=== PATIENT | male | born 1945 | race Caucasian/White ===

== ENCOUNTER → 2019-09-20 12:53 | Outpatient (CLI) | payer MEDICARE, SELFPAY ==
--- NOTE | ~2019-09-20 | XR_ITS ---
XR chest 2V DATE: 09/20/2019 13:05 INDICATION: Cough, chest congestion TECHNIQUE: PA and lateral views COMPARISON: 11/05/2018 2 view chest FINDINGS: Heart size is within normal limits. There is mild aortic calcification and unfolding. No hi lar or mediastinal enlargement. No pulmonary infiltrate or consolidation, pleural effusion or pulmonary vascular congestion or pneumo thorax. IMPRESSION: No active cardiopulmonary disease Reviewed, dictated and finalized at location A.
== END ==
PROVIDERS: PCP Family Medicine; Visit Provider Family Medicine
DX: J01.91 Acute recurrent sinusitis, unspecified (principal); R05 Cough; R09.89 Other specified symptoms and signs involving the circulatory and respiratory systems
CPT/HCPCS: 71046

== ENCOUNTER 2022-05-16 10:04 | Emergency (ER) | payer MEDICARE, SELFPAY ==
--- NOTE | 2022-05-16 10:09 | ED.URI ---
HPI - URI/Sore Throat General Chief Complaint: Upper Respiratory Infection Stated Complaint: cold symptoms Time Seen by Provider: 05/16/22 10:09 Source: patient Mode of arrival: ambulatory Limitations: no limitations History of Present Illness HPI Narrative: Mr. Soto is a 76-year-old male patient presenting to clinic today with complaints of cold symptoms x5 days. He reports he has had fever, chills, body aches, sore throat, cough and nasal drainage. He reports he has been taking care of his at home who has terminal brain cancer. States that she just finished her last radiation treatment and hospice is the next step. States he feels as though he is very run down. He denies any shortness of breath or chest pain. He denies any nausea vomiting or diarrhea. MD elicited complaint: cough, rhinorrhea and nasal congestion Related Data Home Medications Medication Instructions Recorded Confirmed amlodipine 5 mg tablet 5 mg DAILY 05/16/22 05/16/22 apixaban 5 mg tablet (Eliquis) 5 mg BID 05/16/22 05/16/22 atorvastatin 80 mg tablet 80 mg DAILY 05/16/22 05/16/22 fluticasone propionate 50 2 spray intranasal DAILY 05/16/22 05/16/22 mcg/actuation nasal spray,suspension glimepiride 2 mg tablet 2 mg BID 05/16/22 05/16/22 insulin glargine 100 unit/mL (3 60 unit subcut DAILY 05/16/22 05/16/22 mL) subcutaneous pen (Lantus Solostar U-100 Insulin) metformin 1,000 mg tablet 1,000 mg DAILY 05/16/22 05/16/22 metoprolol tartrate 25 mg tablet 25 mg BID 05/16/22 05/16/22 montelukast 10 mg tablet 10 mg DAILY 05/16/22 05/16/22 etrndywr-mow-lynsu acid 0.4 1 tablet PO DAILY 05/16/22 05/16/22 mg-lycopene 300 mcg-lutein 250 mcg tablet (Centrum Silver) pantoprazole 40 mg tablet,delayed 40 mg PO BID 05/16/22 05/16/22 release pregabalin 50 mg capsule 50 mg BID 05/16/22 05/16/22 tamsulosin 0.4 mg capsule 0.4 mg PO DAILY 05/16/22 05/16/22 Allergies Allergy/AdvReac Type Severity Reaction Status Date / Time No Known Allergies Allergy Verified 05/16/22 10:28 Review of Systems Review of Systems: Pertinent positives per HPI. Patient denies any rash, headache, visual changes, dizziness, shortness of breath, chest pain, palpitations, nausea, vomiting, diarrhea, constipation, abdominal pain, or any urinary issues. PMFSH Comments At the time of my signature, I reviewed and agree with the nursing past medical, surgical, social, and family history. There is no relevant family history pertinent to the patient complaint. Exam Narrative: General: Well-developed, well nourished, in no apparent distress Head: Normocephalic, atraumatic Eyes: Pupils equally round and reactive to light bilaterally, EOM intact, sclera and conjunctive clear, no discharge, lids normal Ears: TMs intact and clear, ear canals clear, no drainage, grossly hearing normal. Nose: Nares patent, clear nasal discharge, mild inflammation, no sinus tenderness. Mouth: Oral pharynx without lesions or masses, good dentition, MMM. Oropharynx red with swelling Neck: Supple, trachea midline, no enlargement of anterior or posterior cervical nodes, no thyroid masses or goiter palpable. Cardio: Regular rate and rhythm, s1 and s2 normal, no murmur appreciated. Resp: Clear to auscultation bilaterally, no rhonchi, rales, wheezing or rubs Course Course Emergency Course: Portions of this record may have been created with voice recognition software. Level of Care: Express Care Visit Vital Signs Vital signs: Vital Signs Temperature 36.6 C 05/16/22 10:19 Pulse Rate 66 05/16/22 10:19 Respiratory Rate 18 05/16/22 10:19 Blood Pressure 111/59 L 05/16/22 10:19 Pulse Oximetry 100 05/16/22 10:19 Oxygen Delivery Room Air 05/16/22 10:19 Temperature 36.6 C 05/16/22 10:19 Pulse Rate 66 05/16/22 10:19 Respiratory Rate 18 05/16/22 10:19 Blood Pressure 111/59 L 05/16/22 10:19 Pulse Oximetry 100 05/16/22 10:19 Oxygen Delivery Room Air 05/16/22 10:
[2022-05-16 10:19] VITALS: BP 111/59; PULSE 66; RESP 18; TEMP 36.6; O2SAT 100
== END 2022-05-16 11:11 | disposition home or self-care (01) ==
LOC: EXPTROY 10:11
PROVIDERS: Emergency Provider Nurse Practitioner Family; PCP Family Medicine
DX: B34.9 Viral infection, unspecified (principal); J06.9 Acute upper respiratory infection, unspecified; J02.9 Acute pharyngitis, unspecified; Z20.822 Contact with and (suspected) exposure to COVID-19; E78.00 Pure hypercholesterolemia, unspecified; E11.9 Type 2 diabetes mellitus without complications
CPT/HCPCS: 87081; 87426; 87804; 87880; 99213; C9803; G0463

== ENCOUNTER 2022-05-31 19:20 | Emergency (ER) | payer MEDICARE, SELFPAY ==
--- NOTE | ~2022-05-31 | XR_ITS ---
EXAMINATION: XR chest 2V Exam Date/Time: 05/31/2022 19:44 [employer] HISTORY: cough for 3 weeks Comparison: 09/20/2019 and 11/05/2018, CT 05/30/2012. RESULT: Lines, tubes, and devices: None. Lungs and pleura: 2.9 cm lobulated left lower lung opacity, probably located posteriorly in the ling azul along the major fissure. Lungs otherwise clear, save for the presence of senescent changes. Cardiomediastinal silhouette: Stable. Other: No acute osseous or upper abdominal finding. IMPRESSION: No acute cardiopulmonary process. 2.9 cm left lower lung nodule, recommend referral for nonemergent, outpatient low-dose CT of the chest for further evaluation Reviewed, dictated and finalized at location K. S REPRESENT[employer]IVE [employer] IMPRESSION: No acute cardiopulmonary process. 2.9 cm left lower lung nodule, recommend refe rral for nonemergent, outpatient low-dose CT of the chest for further evaluatio n
[2022-05-31 19:34] VITALS: BP 104/59; PULSE 64; RESP 18; TEMP 35.9; O2SAT 99
--- NOTE | 2022-05-31 19:35 | ED.URI ---
HPI - URI/Sore Throat General Chief Complaint: Upper Respiratory Infection Stated Complaint: congestion Time Seen by Provider: 05/31/22 19:35 Source: patient Mode of arrival: ambulatory Limitations: no limitations History of Present Illness HPI Narrative: 76-year-old male presents with niece with complaint of sinus congestion, cough for the past several weeks. Was seen for the same complaint here approximately 3 weeks ago and told sinusitis, viral not given any antibiotic. Patient reports that symptoms are worse, coughing at night. Having some mild shortness of breath on exertion. Reports history of PE 2 years ago. States that symptoms are not the same, when he had a PE he could barely walk across the room without needing to sit down. Does not feel the same today. Patient is talkative and alert. patient reports that he is Exhausted. Is taking care of his that has cancer. she is very ill and he is having to lift her until a home health nurse starts in June. All systems reviewed and negative except as noted above. Related Data Home Medications Medication Instructions Recorded Confirmed amlodipine 5 mg tablet 5 mg DAILY 05/16/22 05/31/22 apixaban 5 mg tablet (Eliquis) 5 mg BID 05/16/22 05/31/22 atorvastatin 80 mg tablet 80 mg DAILY 05/16/22 05/31/22 fluticasone propionate 50 2 spray intranasal DAILY 05/16/22 05/31/22 mcg/actuation nasal spray,suspension glimepiride 2 mg tablet 2 mg BID 05/16/22 05/31/22 insulin glargine 100 unit/mL (3 60 unit subcut DAILY 05/16/22 05/31/22 mL) subcutaneous pen (Lantus Solostar U-100 Insulin) metformin 1,000 mg tablet 1,000 mg DAILY 05/16/22 05/31/22 metoprolol tartrate 25 mg tablet 25 mg BID 05/16/22 05/31/22 montelukast 10 mg tablet 10 mg DAILY 05/16/22 05/31/22 njpetacj-rta-swwhb acid 0.4 1 tablet PO DAILY 05/16/22 05/31/22 mg-lycopene 300 mcg-lutein 250 mcg tablet (Centrum Silver) pantoprazole 40 mg tablet,delayed 40 mg PO BID 05/16/22 05/31/22 release pregabalin 50 mg capsule 50 mg BID 05/16/22 05/31/22 tamsulosin 0.4 mg capsule 0.4 mg PO DAILY 05/16/22 05/31/22 famotidine 20 mg tablet 20 mg PO DAILY 05/31/22 05/31/22 pregabalin 50 mg capsule 50 mg PO DAILY 05/31/22 05/31/22 sertraline 25 mg tablet 25 mg PO DAILY 05/31/22 05/31/22 Allergies Allergy/AdvReac Type Severity Reaction Status Date / Time No Known Allergies Allergy Verified 05/31/22 19:55 Review of Systems Review of Systems: CONSTITUTIONAL: Denies fever, chills, or sweats. EYES: Denies visual changes, redness, or discharge. ENT: Reports rhinorrhea, congestion, sore throat, or otalgia. CARDIOVASCULAR: Denies chest pain, palpitations, or edema. RESPIRATORY: report cough and dyspnea on exertion. GASTROINTESTINAL: Denies abdominal pain, nausea, vomiting, or diarrhea. GENITOURINARY: Denies dysuria or hematuria. SKIN: Denies rash or itching. MUSCULOSKELETAL: Denies back pain, joint pain, or myalgia. NEUROLOGIC: Denies headache, numbness, or weakness. PSYCHIATRIC: Denies anxiety or depression. All other systems reviewed are negative, except as documented in HPI. [facility] Past Medical History Medical History (Updated 06/01/22 @ 14:15 by Rocio Dietz PA-C) History of diabetes mellitus History of gastroesophageal reflux (GERD) History of hyperlipidemia History of hypertension Social History Social History (Updated 06/01/22 @ 10:56 by Rocio Dietz PA-C) Smoking status: Never smoker Comments At time of signature, agree with nursing past medical, surgical, social and family history. There is no relevant family history pertinent to the presenting complaint. Exam Narrative: GENERAL: This is a well-nourished, well-developed patient Patient appears fatigued but in no distress. HEAD: normocephalic, atraumatic. EYES: PERRL. Sclera clear/white. Vision is grossly intact. EARS: External ears normal, auditory canals clear and without drainage, Fluid bilateral TMs with erythema. N
--- NOTE | 2022-05-31 20:23 | PC.NURSE ---
Patient presents to express care in [place] with concern of PE. This nurse and ROLL [employer]PER explained to patient and niece that the x-ray will not show a PE, but we can check for pneumonia or bronchitis. x-ray performed and results given to patient. No acute findings per the report. Patient and niece educated and explained to them that they really need to go to the ER if symptoms worsen even in the slightest and if they are still concerned about PE to please proceed to the ED.
== END 2022-05-31 20:20 | disposition home or self-care (01) ==
PROVIDERS: Emergency Provider Nurse Practitioner Family; PCP Family Medicine
DX: J01.90 Acute sinusitis, unspecified (principal); E11.9 Type 2 diabetes mellitus without complications; Z79.84 Long term (current) use of oral hypoglycemic drugs; Z79.4 Long term (current) use of insulin; K21.9 Gastro-esophageal reflux disease without esophagitis; E78.5 Hyperlipidemia, unspecified; I10 Essential (primary) hypertension
CPT/HCPCS: 71046; 99213; G0463

== ENCOUNTER 2022-06-01 10:17 | Emergency (ER) | payer MEDICARE, SELFPAY ==
[2022-06-01] VITALS (24 sets, daily range): BP systolic 114–132; BP diastolic 65–78; PULSE 56–69; RESP 12–20; TEMP 36.5; O2SAT 94–100
--- NOTE | ~2022-06-01 | CT_ITS ---
EXAMINATION: CTA chest PE protocol DATE: 06/01/2022 12:13 CHIEF TECHNICIAN INDICATION: Shortness of breath. History of blood clots. Lung nodule. TECHNIQUE: Computed tomographic angiography (CTA) of the chest was performed with 100 mL Omnipaque-35 0 intravenous contrast. The dose-length product was 511.27 mGy-cm. Maximum intensity projection 3D-re constructions of the aorta and other arteries were constructed by the technologist on a separate work station. COMPARISON: CT dated 05/30/2012 and chest x-ray dated 05/31/2022. FINDINGS: Study is technically adequate without evidence for pulmonary embolism. No significant pleur al or pericardial effusion. There is atherosclerosis of the aorta and coronary arteries. Small hiatal hernia. Cardiomegaly. No thoracic lymphadenopathy. There is a lingular mass measuring 2.9 x 2 x 2.2 cm, suspicious for bronchogenic carcinoma. No endobronchial lesions. No pneumothorax. No endobronchia l lesions. IMPRESSION: 1. No evidence for pulmonary embolism. 2: Lingular mass measuring 2.9 cm maximum dimension, suspicious for bronchogenic carcinoma. Reviewed, dictated and finalized at location B. F TECHNICIAN IMPRESSION: 1. No evidence for pulmonary embolism. 2: Lingular mass measuring 2.9 cm maximum dimension, suspicious for bronchogeni c carcinoma.
--- NOTE | 2022-06-01 10:29 | ED.SOB ---
HPI - SOB/Dyspnea General Chief Complaint: Shortness of Breath/Dyspnea Stated Complaint: SOB Time Seen by Provider: 06/01/22 10:27 Source: patient and family Mode of arrival: ambulatory Limitations: no limitations History of Present Illness HPI Narrative: This is a 76 year old male that presents to the ER for ongoing cold symptoms over the last couple of weeks. Reports cough, congestion and malaise. He was evaluated by his PCP and at urgent care. Was started on an antibiotic and steroid. Reports he has had shortness of breath worse with exertion. Denies fever or chest pain. Related Data Home Medications Medication Instructions Recorded Confirmed amlodipine 5 mg tablet 5 mg DAILY 05/16/22 05/31/22 apixaban 5 mg tablet (Eliquis) 5 mg BID 05/16/22 05/31/22 atorvastatin 80 mg tablet 80 mg DAILY 05/16/22 05/31/22 fluticasone propionate 50 2 spray intranasal DAILY 05/16/22 05/31/22 mcg/actuation nasal spray,suspension glimepiride 2 mg tablet 2 mg BID 05/16/22 05/31/22 insulin glargine 100 unit/mL (3 60 unit subcut DAILY 05/16/22 05/31/22 mL) subcutaneous pen (Lantus Solostar U-100 Insulin) metformin 1,000 mg tablet 1,000 mg DAILY 05/16/22 05/31/22 metoprolol tartrate 25 mg tablet 25 mg BID 05/16/22 05/31/22 montelukast 10 mg tablet 10 mg DAILY 05/16/22 05/31/22 sjelqwpt-mfk-krtmt acid 0.4 1 tablet PO DAILY 05/16/22 05/31/22 mg-lycopene 300 mcg-lutein 250 mcg tablet (Centrum Silver) pantoprazole 40 mg tablet,delayed 40 mg PO BID 05/16/22 05/31/22 release pregabalin 50 mg capsule 50 mg BID 05/16/22 05/31/22 tamsulosin 0.4 mg capsule 0.4 mg PO DAILY 05/16/22 05/31/22 famotidine 20 mg tablet 20 mg PO DAILY 05/31/22 05/31/22 pregabalin 50 mg capsule 50 mg PO DAILY 05/31/22 05/31/22 sertraline 25 mg tablet 25 mg PO DAILY 05/31/22 05/31/22 Allergies Allergy/AdvReac Type Severity Reaction Status Date / Time No Known Allergies Allergy Verified 05/31/22 19:55 Review of Systems Review of Systems: CONSTITUTIONAL: Denies fever ENT: Reports congestion CARDIOVASCULAR: Denies chest pain, or edema. RESPIRATORY: Reports cough and dyspnea. All systems reviewed & are unremarkable except as noted in HPI and below PMFSH Past Medical History Medical History (Updated 06/01/22 @ 14:15 by Rocio Dietz PA-C) History of diabetes mellitus History of gastroesophageal reflux (GERD) History of hyperlipidemia History of hypertension Social History Social History (Updated 06/01/22 @ 10:56 by Rocio Dietz PA-C) Smoking status: Never smoker Exam Narrative: GENERAL: Well-appearing, well-nourished, and in no acute distress. HEAD: Normocephalic, atraumatic. EYES: EOMI. ENT: Nares clear, no rhinorrhea or epistaxis. Mucous membranes moist. Oropharynx without tonsillar hypertrophy exudate or other lesions. Bilateral TMs pearly franks non-bulging NECK: Supple. No adenopathy or masses. CHEST: Clear to auscultation. No respiratory distress. No wheezes rales or rhonchi HEART: Regular rate and rhythm. No murmur heard. Normal peripheral pulses. EXTREMITIES: Normal range of motion. No edema. SKIN: Warm, dry, no rash. NEURO: No focal deficits. Alert and oriented x3. PSYCH: Normal mood and affect Course Consultations Consultation #1: Spoke with pulmonology, patient is appropriate to follow-up in clinic for further evaluation. Date: 06/01/22 Vital Signs Vital signs: Vital Signs Temperature 97.7 F 06/01/22 10:25 Pulse Rate 68 06/01/22 10:25 Respiratory Rate 17 06/01/22 10:25 Blood Pressure 128/74 06/01/22 10:25 Pulse Oximetry 97 06/01/22 10:25 Oxygen Delivery Room Air 06/01/22 10:25 Temperature 97.7 F 06/01/22 10:25 Pulse Rate 60 06/01/22 13:30 Respiratory Rate 16 06/01/22 13:30 Blood Pressure 122/66 06/01/22 11:46 Pulse Oximetry 98 06/01/22 13:30 Oxygen Delivery Room Air 06/01/22 10:35 MDM - SOB/Dyspnea MDM Narrative Medical decision making narrative: Patient pr
--- NOTE | 2022-06-01 10:34 | ECG_ITS ---
Measurements Intervals [place] Rate: 68 P: 48 AR: 209 QRS: -20 QRSD: 104 T: 51 QT: 397 QTc: 422 Interpretive Statements SINUS RHYTHM DELAYED PRECORDIAL R/S TRANSITION INFERIOR INFARCT, AGE INDETERMINATE BORDERLINE ST-T WAVE ABNORMALITY- ANTERIOR LEADS BASELINE ARTIFACT- II, III, AVF ABNORMAL ECG NO PREVIOUS ECG AVAILABLE FOR COMPARISON Electronically Signed On 06-01-2022 11:58:48 [employer] by Hakeem Reyes D.O.
[2022-06-01 10:36] LABS: Glucose Point of Care 213 mg/dl (65-105)
[2022-06-01 10:50] LABS: Basophils Percent Auto 0.5 % (0.2-1.2); Eosinophils Percent Auto 0.2 % (0-4.4); Hematocrit 35.9 % (42.0-52.0); Hemoglobin 11.2 g/dL (14.0-18.0); Immature Granulocyte Absolute 0.02 K/mm3 (0.00-0.031); Immature Granulocyte Percent A 0.3 % (0-0.5); Lymphocytes Absolute Auto 0.93 K/mm3 (0.9-3.2); Lymphocytes Percent Auto 14.1 % (18.3-44.2); Mean Corpuscular HGB Conc 31.2 g/dl (32-36); Mean Corpuscular Hemoglobin 27.5 pg (26-34); Mean Corpuscular Volume 88.2 fl (80-100); Mean Platelet Volume 8.7 fl (7.4-10.4); Monocytes Absolute Auto 0.7 K/mm3 (0.1-0.6); Monocytes Percent Auto 10.2 % (2.6-8.5); Neutrophils Absolute Auto 4.9 K/mm3 (1.3-6.7); Neutrophils Percent Auto 74.7 % (45.5-73.1); Platelet Count Result 301 k/mm3 (150-375); Red Blood Count 4.07 M/mm3 (4.6-6.20); Red Cell Distribution Width 16.2 % (11.5-14.5); White Blood Count 6.6 K/mm3 (4.5-10.0)
[2022-06-01 10:59] LABS: INR 1.2; Prothrombin Time 14.6 Seconds (11.1-14.7)
[2022-06-01 11:00] LABS: Alanine Aminotransferase 28 U/L (6-50); Albumin Level 3.3 g/dL (3.5-5.1); Alkaline Phosphatase 83 U/L (38-126); Anion Gap 7 mmol/L (8-16); Aspartate Amino Transferase 27 U/L (17-59); Bilirubin,Total 0.4 mg/dL (0.2-1.3); Blood Urea Nitrogen 20 mg/dL (9-20); Calcium 7.9 mg/dL (8.4-10.2); Carbon Dioxide 25 mmol/L (22-30); Chloride 103 mmol/L (98-107); Estimated CRCL calculation 44 ml/min; Estimated Glomerular Filt Rate 54; Glucose 210 mg/dL (65-110); Partial Thromboplastin Time 34.2 SECONDS (22.3-36.8); Sodium 135 mmol/L (137-145)
[2022-06-01 11:12] LABS: NT Pro B Type Natriuretic Pept 469 pg/mL (5-100); Troponin I < 0.012 ng/mL (0.000-0.034)
[2022-06-01 11:22] LABS: D Dimer 0.48 ug/mL (<0.48)
[2022-06-01 11:26] LABS: Influenza A QL RT-PCR Positive (Negative); Influenza B QL RT-PCR Negative (Negative); RSV RNA, RT-PCR Negative (Negative); SARS-CoV-2 RNA PCR Negative
== END 2022-06-01 14:39 | disposition home or self-care (01) ==
PROVIDERS: Physician Assistant; Emergency Provider Emergency Medicine; PCP Family Medicine
DX: J10.1 Influenza due to other identified influenza virus with other respiratory manifestations (principal); R91.8 Other nonspecific abnormal finding of lung field; Z20.822 Contact with and (suspected) exposure to COVID-19; E11.9 Type 2 diabetes mellitus without complications; K21.9 Gastro-esophageal reflux disease without esophagitis; E78.5 Hyperlipidemia, unspecified; I10 Essential (primary) hypertension; Z79.4 Long term (current) use of insulin; Z79.01 Long term (current) use of anticoagulants; Z79.84 Long term (current) use of oral hypoglycemic drugs; R94.31 Abnormal electrocardiogram [ECG] [EKG]
CPT/HCPCS: 36415; 71275; 80053; 82948; 83880; 84484; 85025; 85380; 85610; 85730; 87637; 93005; 99284; Q9967

== ENCOUNTER 2023-10-30 07:57 | Outpatient (CLI) | payer MEDICARE, SELFPAY ==
--- NOTE | ~2023-10-30 | XR_ITS ---
EXAMINATION: XR chest 2V 10/30/2023 08:26 INDICATION: Allergic rhinitis PROCEDURE: 2 view chest COMPARISON: No prior studies for comparison. FINDINGS: The lungs are clear. The cardiomediastinal silhouette is within normal limits. There are no pleural effusions. There is no pneumothorax suspected. IMPRESSION: 1: NO ACUTE CARDIOPULMONARY DISEASE. Reviewed, dictated and finalized at location B.
== END 2023-10-30 07:58 ==
PROVIDERS: PCP Family Medicine; Visit Provider Family Medicine
DX: J30.2 Other seasonal allergic rhinitis (principal)
CPT/HCPCS: 71046

== ENCOUNTER 2023-11-04 14:46 | Emergency (ER) | payer MEDICARE, SELFPAY ==
--- NOTE | ~2023-11-04 | CT_ITS ---
EXAMINATION: CTA chest PE protocol DATE: 11/04/2023 16:54 INDICATION: Cough and prior history of PE TECHNIQUE: Computed tomography angiography (CTA) of the chest was performed with 100 mL Omnipaque-350 intravenous contrast timed to evaluate the pulmonary arteries. Coronal maximum intensity projection 3D-reconstructions were created by the technologist. The dose-length product (DLP) was 720.79 mGy-cm. Automated exposure control and iterative reconstruction technique were employed. COMPARISON: 06/01/2022; x-ray chest 10/30/2023. FINDINGS: Lung parenchyma and airways: Dependent atelectasis, otherwise clear. Patent airways. Near-complete in terval resolution of the previously described lingular mass. Pleura: Unremarkable. Thoracic inlet, axillae and chest wall: Unremarkable. Thoracic aorta: No significant dilation. No dissection. Mild arch calcification. Mediastinum: Normal. Heart and pericardium: Normal. Coronary artery calcifications: Mild. Upper abdomen: No significant finding. Bones: No acute osseous finding. Pulmonary arteries: Study quality: Adequate. No pulmonary emboli detected. IMPRESSION: No CT evidence of acute pulmonary embolus. No acute process detected in the chest. Reviewed, dictated and finalized at location K.
--- NOTE | ~2023-11-04 | CT_ITS ---
EXAMINATION: CT brain wo con DATE: 11/04/2023 16:47 INDICATION: head injury . TECHNIQUE: Computed tomography (CT) of the head was performed without intravenous contrast. The mA wa s adjusted according to patient size. Iterative reconstruction technique was employed. The dose-lengt h product was 605.33 mGy-cm. COMPARISON: 04/23/2008 MRI brain, images only. FINDINGS: No acute intracranial hemorrhage or extra-axial fluid collection. No hydrocephalus, mass, or herniation. No acute ischemic infarct. Unremarkable dural venous sinus attenuation. No acute osseous abnormality. The aerated spaces are clear. Mild atrophy and chronic white matter change. Atherosclerotic intracranial calcification. Bilateral l ens replacements. Mild bilateral basal ganglia calcification. Partially empty sella. IMPRESSION: No acute intracranial process. Reviewed, dictated and finalized at location K.
[2023-11-04 14:46] VITALS: BP 118/58; PULSE 54; RESP 13; TEMP 36.8; O2SAT 98
[2023-11-04 14:56] VITALS: O2SAT 100
--- NOTE | 2023-11-04 15:36 | ED.GENADULT ---
HPI - General Adult General Chief complaint: Fall Stated complaint: glf Time Seen by Provider: 11/04/23 14:58 History of Present Illness HPI narrative: 78-year-old male presenting to the emergency department for evaluation after having a ground level fall. Patient states that he has had a intermittent respiratory illness ongoing for multiple weeks. Patient states that he has had increased episodes of dizziness since having the upper respiratory infection. Patient states he stood up from the couch and walked a few feet had onset of dizziness and was unable to catch himself before he fell and struck his head on the wall. Patient denies any loss consciousness. 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 Related Data Home Medications Medication Instructions Recorded Confirmed amlodipine 5 mg tablet 5 mg DAILY 05/16/22 05/31/22 apixaban 5 mg tablet (Eliquis) 5 mg BID 05/16/22 05/31/22 atorvastatin 80 mg tablet 80 mg DAILY 05/16/22 05/31/22 fluticasone propionate 50 2 spray intranasal DAILY 05/16/22 05/31/22 mcg/actuation nasal spray,suspension glimepiride 2 mg tablet 2 mg BID 05/16/22 05/31/22 insulin glargine 100 unit/mL (3 60 unit subcut DAILY 05/16/22 05/31/22 mL) subcutaneous pen (Lantus Solostar U-100 Insulin) metformin 1,000 mg tablet 1,000 mg DAILY 05/16/22 05/31/22 metoprolol tartrate 25 mg tablet 25 mg BID 05/16/22 05/31/22 montelukast 10 mg tablet 10 mg DAILY 05/16/22 05/31/22 xbudgihu-dan-nlwuy acid 0.4 1 tablet PO DAILY 05/16/22 05/31/22 mg-lycopene 300 mcg-lutein 250 mcg tablet (Centrum Silver) pantoprazole 40 mg tablet,delayed 40 mg PO BID 05/16/22 05/31/22 release pregabalin 50 mg capsule 50 mg BID 05/16/22 05/31/22 tamsulosin 0.4 mg capsule 0.4 mg PO DAILY 05/16/22 05/31/22 famotidine 20 mg tablet 20 mg PO DAILY 05/31/22 05/31/22 pregabalin 50 mg capsule 50 mg PO DAILY 05/31/22 05/31/22 sertraline 25 mg tablet 25 mg PO DAILY 05/31/22 05/31/22 Allergies Allergy/AdvReac Type Severity Reaction Status Date / Time No Known Allergies Allergy Verified 11/04/23 14:54 Review of Systems Review of Systems: All systems reviewed & are unremarkable except as noted in HPI and below PMFSH Past Medical History Medical History (Updated 11/05/23 @ 00:00 by Randy Grove) History of diabetes mellitus History of gastroesophageal reflux (GERD) History of hyperlipidemia History of hypertension Social History Social History (Updated 06/01/22 @ 10:56 by Rocio Dietz PA-C) Smoking status: Never smoker Exam Narrative: APPEARANCE: Well appearing, no pain, no distress, well-nourished. HEAD: normocephalic, atraumatic. EYES: PERRLA/EOMI, conjunctivae clear. NOSE: Normal no drainage EARS:TMS clear with good light reflex. THROAT: Pharynx clear, no exudate. NECK: Supple. No adenopathy, no masses. RESPIRATORY: Airway patent, respirations nonlabored. Clear to auscultation bilaterally, no rales, rhonchi, wheezing. CARDIOVASCULAR: Regular rate and rhythm without murmurs rubs or gallops. ABDOMINAL: Soft, nontender, nondistended, normal bowel sounds MUSCULOSKELETAL: Moves all extremities. Strength/ROM intact, No edema, No calf tenderness. NEURO: Alert. Cranial nerves II through XII intact. Grossly intact SKIN: Warm, dry. Normal Color. Small abrasion to the left lateral eyebrow Course Vital Signs Vital signs: Vital Signs Temperature 98.3 F 11/04/23 14:46 Pulse Rate 54 L 11/04/23 14:46 Respiratory Rate 13 11/04/23 14:46 Blood Pressure 118/58 L 11/04/23 14:46 Pulse Oximetry 98 11/04/23 14:46 Oxygen Delivery Room Air 11/04/23 14:46 Temperature 98.7 F 11/04/23 18:13 Pulse Rate 59 L 11/04/23 18:13 Respiratory Rate 17 11/04/23 18:13 Blood Pressure 120/67 11/04/23 18:13 Pulse Oximetry 99
[2023-11-04 16:00] VITALS: BP 111/60; PULSE 53; RESP 14; O2SAT 97
[2023-11-04 16:06] LABS: Basophils Absolute Auto 0.1 K/mm3 (0.0-0.1); Basophils Percent Auto 0.6 % (0.2-1.2); Eosinophils Absolute Auto 0.1 K/mm3 (0-0.3); Eosinophils Percent Auto 1.1 % (0-4.4); Hematocrit 32.4 % (42.0-52.0); Hemoglobin 10.3 g/dL (14.0-18.0); Immature Granulocyte Absolute 0.01 K/mm3 (0.00-0.031); Immature Granulocyte Percent A 0.1 % (0-0.5); Lymphocytes Absolute Auto 1.31 K/mm3 (0.9-3.2); Lymphocytes Percent Auto 16.5 % (18.3-44.2); Mean Corpuscular HGB Conc 31.8 g/dl (32-36); Mean Corpuscular Hemoglobin 29.9 pg (26-34); Mean Corpuscular Volume 94.2 fl (80-100); Mean Platelet Volume 9.3 fl (7.4-10.4); Monocytes Absolute Auto 0.7 K/mm3 (0.1-0.6); Monocytes Percent Auto 8.2 % (2.6-8.5); Neutrophils Absolute Auto 5.8 K/mm3 (1.3-6.7); Neutrophils Percent Auto 73.5 % (45.5-73.1); Platelet Count Result 204 k/mm3 (150-375); Red Blood Count 3.44 M/mm3 (4.6-6.20); Red Cell Distribution Width 12.7 % (11.5-14.5); White Blood Count 7.9 K/mm3 (4.5-10.0)
[2023-11-04 16:19] LABS: INR 1.2; Prothrombin Time 15.8 Seconds (11.1-14.7)
[2023-11-04 16:20] LABS: Partial Thromboplastin Time 27.9 Seconds (22.3-36.8)
[2023-11-04 16:22] LABS: Alanine Aminotransferase 15 U/L (6-50); Albumin Level 3.4 g/dL (3.5-5.1); Alkaline Phosphatase 61 U/L (38-126); Anion Gap 5 mmol/L (4-12); Aspartate Amino Transferase 16 U/L (17-59); Bilirubin,Total 0.5 mg/dL (0.2-1.3); Blood Urea Nitrogen 26 mg/dL (9-20); Calcium 9.2 mg/dL (8.4-10.2); Carbon Dioxide 24 mmol/L (22-30); Chloride 109 mmol/L (98-107); Estimated CRCL calculation 45 ml/min; Estimated Glomerular Filt Rate 54; Glucose 162 mg/dL (65-110); Potassium 5.1 mmol/L (3.4-5.0); Sodium 138 mmol/L (137-145)
[2023-11-04 16:30] LABS: Influenza A QL RT-PCR Negative (Negative); Influenza B QL RT-PCR Negative (Negative); RSV RNA, RT-PCR Negative (Negative); SARS-CoV-2 RNA PCR Negative (Negative)
[2023-11-04 17:48] VITALS: BP 129/67; PULSE 55; RESP 15; O2SAT 100
[2023-11-04 18:13] VITALS: BP 120/67; PULSE 59; RESP 17; TEMP 37.1; O2SAT 99
== END 2023-11-04 18:16 | disposition home or self-care (01) ==
PROVIDERS: Emergency Provider Emergency Medicine; PCP Family Medicine
DX: J18.9 Pneumonia, unspecified organism (principal); R55 Syncope and collapse; S09.90XA Unspecified injury of head, initial encounter; Z20.822 Contact with and (suspected) exposure to COVID-19; I10 Essential (primary) hypertension; E11.9 Type 2 diabetes mellitus without complications; E78.5 Hyperlipidemia, unspecified; K21.9 Gastro-esophageal reflux disease without esophagitis; Z86.16 Personal history of COVID-19; Z86.711 Personal history of pulmonary embolism; Z79.01 Long term (current) use of anticoagulants; Z79.4 Long term (current) use of insulin; Z79.84 Long term (current) use of oral hypoglycemic drugs; W01.198A Fall on same level from slipping, tripping and stumbling with subsequent striking against other object, initial encounter
CPT/HCPCS: 36415; 70450; 71275; 80053; 85025; 85610; 85730; 87637; 99284; Q9967

== ENCOUNTER 2025-06-16 06:50 | Outpatient (CLI) | payer MEDICARE, SELFPAY ==
--- NOTE | ~2025-06-16 | MR_ITS ---
EXAMINATION: MR renal wo con DATE: 06/16/2025 07:47 INDICATION: Stage II chronic kidney disease TECHNIQUE: Magnetic resonance imaging (MRI) of the abdomen was performed without intravenous contrast. Sequences included coronal T2-weighted SS-FSE, coronal and axial FS 2D-FIESTA, axial STIR FSE, axial T2-weighted SS-FSE, axial T2- weighted FS SS-FSE, axial diffusion-weighted SE, axial dual-echo T1-weighted FSPGR, and axial and coronal T1-weighted LAVA. COMPARISON: CT dated 11/28/2011 FINDINGS: Heart size is normal. No pericardial or pleural effusion. Small sliding-type hiatal hernia. Liver, gallbladder, spleen, pancreas, left kidney and bilateral adrenal glands are normal. 2.9 cm exophytic cyst at the upper pole of the right kidney. Symmetric mild bilateral perinephric stranding. No hydronephrosis. There appears be a large 5.3 cm diameter gas-filled likely diverticulum arising from the sigmoid colon with some adjacent edema-like signal change suspicious for diverticulitis. Visualized portions of bowels including the appendix are otherwise normal. No pathologically enlarged abdominal or upper pelvic lymphadenopathy. Mild lumbar and lower thoracic spondylosis. IMPRESSION: 1. Relatively symmetric mild bilateral perinephric stranding and 2.9 cm exophytic right renal cyst. No hydronephrosis. 2. Inflammatory edema and stranding along the margins of a 5.2 cm gas-filled structure likely representing a large diverticulum arising from the sigmoid colon. Correlate clinically for abdominal pain and consider postcontrast CT for further evaluation. 3. Small sliding-type hiatal hernia. Reviewed, dictated and finalized at location A. [employer]AL DISTRICT CLERK IMPRESSION: 1. Relatively symmetric mild bilateral perinephric stranding and 2.9 cm exophyt ic right renal cyst. No hydronephrosis. 2. Inflammatory edema and stranding along the margins of a 5.2 cm gas-filled st ructure likely representing a large diverticulum arising from the sigmoid colon . Correlate clinically for abdominal pain and consider postcontrast CT for furt her evaluation. 3. Small sliding-type hiatal hernia.
== END 2025-06-16 06:51 | disposition home or self-care (01) ==
PROVIDERS: PCP Family Medicine; Visit Provider Family Medicine
DX: N18.2 Chronic kidney disease, stage 2 (mild) (principal); K44.9 Diaphragmatic hernia without obstruction or gangrene
CPT/HCPCS: 74181

== ENCOUNTER 2025-06-23 10:36 | Outpatient (CLI) | payer MEDICARE, SELFPAY ==
--- NOTE | ~2025-06-23 | CT_ITS ---
EXAM/PROCEDURE: CTA chest HISTORY: AAA wo rupture COMPARISON: November 04, 2023 TECHNIQUE: CT thoracic aortography. FINDINGS: Borderline aneurysmal dilatation of the ascending thoracic aorta measuring 4.1 cm in diameter at the level of the right pulmonary artery not grossly changed. Motion artifact obscures the root portion. No evidence of dissection, ulceration or acute complication. The aorta tapers to normal size in the distal arch. The descending portion is normal in size. The descending aorta is mildly tortuous and mildly atherosclerotic. Heart and pulmonary arteries appear normal other than moderate coronary artery calcifications. No significant pericardial effusion or lymphadenopathy. Lungs are clear. Diffuse degenerative changes in the bones. No acute process seen in the visualized upper abdomen or extrathoracic soft tissues. IMPRESSION: Mild aneurysmal dilatation of the ascending thoracic aorta measuring 4.1 cm with no gross change from the October 2023 exam. Reviewed, dictated and finalized at location A. [employer] ANALYST IMPRESSION: Mild aneurysmal dilatation of the ascending thoracic aorta measuring 4.1 cm wit h no gross change from the October 2023 exam.
[2025-06-23 10:56] LABS: Estimated Glomerular Filt Rate 42
== END 2025-06-23 10:37 | disposition home or self-care (01) ==
LOC: MICIMG 10:37
PROVIDERS: PCP Family Medicine; Visit Provider Family Medicine
DX: I71.20 Thoracic aortic aneurysm, without rupture, unspecified (principal)
CPT/HCPCS: 71275; Q9967